=== PATIENT | male | born 1990 | race Hispanic/Latino ===

== ENCOUNTER 2024-10-11 04:09 | Emergency (ER) | payer SELFPAY ==
[2024-10-11] MEDS ORDERED: LIDOCAINE 2% W/EPI 1:200,000 MPF 20 ML VIAL IM ONE (04:12)
[2024-10-11] MEDS ORDERED: DERMABOND SKIN ADHESIVE TOP ONE (04:30)
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
[2024-10-11 04:46] VITALS: BP 138/98; TEMP 97.9; O2SAT 100
== END 2024-10-11 04:42 | disposition home or self-care (01) ==
LOC: ER 04:09
DX: S01.81XA Laceration without foreign body of other part of head, initial encounter (principal)
CPT/HCPCS: 12011; 99283